=== PATIENT | male | born 1940 | race Caucasian/White ===

== ENCOUNTER 2016-07-21 17:16 | Inpatient (IN) | payer OTHER ==
[~2016-07-21] VITALS: Ht 154.9 cm; Wt 61.2 kg
[2016-07-21] MEDS: NACL 0.9% 1,000 ML IV SCH (01:00)
[~2016-07-21 17:16] MED LIST: ARICEPT10 MG PO; DIOVAN160 M1 PO; FLOMAX0.4 MG PO; JANUVIA25 MG PO; NORVASC5 MG PO
[2016-07-21 18:12] VITALS: BP 151/81
--- NOTE | 2016-07-21 19:32 | NUR ---
Patient ambulated to bed 03.
--- NOTE | 2016-07-21 19:35 | NUR ---
75 Y/O HERE BIB DAUGHTER W/C/O PT BEING CONFUSED AND DISORIENTED X 1 DAY. PER EAMON PT HAS A HX OF HTN, DM, DEMENTIA, BUT HE SEEMS MORE CONFUSED TO THE POINT THAT PT WAS UNABLE TO DRESS HIMSELF. BP 165/73 DENIES ANY CHEST PAIN OR ANY KIND OF PAIN. NO S/S OF DISTRESS NOTED. ER MD NOTIFIED.
--- NOTE | 2016-07-21 19:49 | NUR ---
Dr. Blair evaluating patient at bedside.
--- NOTE | 2016-07-21 20:13 | NUR ---
Patient to CT via [facility].
--- NOTE | 2016-07-21 20:29 | NUR ---
Patient back from CT via [facility].
[2016-07-21] MEDS ORDERED: NACL 0.9% 500 ML IV ONE (21:35)
[2016-07-21] MEDS ORDERED: VANCOMYCIN 1,000 MG in DEXTROSE 5% 250 ML IV ONE (22:05)
[2016-07-21] MEDS ORDERED: PIPERACILLIN/TAZOBACTAM 3.375 GM in DEXTROSE 5% 50 ML IV ONE (22:05)
[2016-07-21] MEDS ORDERED: PIPERACILLIN/TAZOBACTAM 3.375 GM VIAL IV ONE (22:08)
[2016-07-21] MEDS ORDERED: VANCOMYCIN 1,000 MG VIAL ONE (22:09)
--- NOTE | 2016-07-21 22:15 | NUR ---
PT RESTRING IN BED AT 2200 WHEN C/O DIZZINESS. BP RECHECKED, 78/48. BP RECHECKED ON THE OTHER ARM AND READING WAS 79/56. ER MD CALLED AT BEDSIDE. PT WAS PINK, O2 SAT 97% IN RA. PER ER MD TO CONT WITH NA 0.9% IV BOLUS. PT PLACED IN TRENDELENBURT POSITION. BP RECHECKED AT 2207 158/77, O2 99% AND PT DENIED HAVING ANY MORE DIZZINESS. PER ER MD ORDERS TO START ZOSYN AND VANCOMYCIN.
[2016-07-21] MEDS ORDERED: ONDANSETRON 4 MG/2 ML VIAL IVP PRN (22:30)
[2016-07-21] MEDS ORDERED: MORPHINE SULFATE 2 MG/ML SYR IVP PRN (22:30)
[2016-07-21] MEDS ORDERED: ACETAMINOPHEN 325 MG TAB PO PRN (22:30)
[2016-07-21] MEDS ORDERED: HYDROcodone/APAP 7.5/325 MG 1 TAB PO PRN (22:30)
[2016-07-21] MEDS ORDERED: POTASSIUM CHLORIDE 10 MEQ TABER PO SCH (22:50)
[2016-07-21] MEDS ORDERED: diphenhydrAMINE 50 MG/ML VIAL IVP ONE (23:05)
--- NOTE | 2016-07-21 23:28 | NUR ---
Patient will be admitted to care of [facility]. Admited to TELEMETRY. Will go to room 109 A. Belongings list completed. Report to EDENILSON CABALLERO.
[2016-07-21 23:40] VITALS: BP 155/73
--- NOTE | 2016-07-21 23:40 | NUR ---
ADMITTED A 75M FROM ER. CAME BY PATT DUE TO FAILURE TO THRIVE. CONFUSED, UNABLE TO DO ADL , WITH WEAKNESS AND FEVER. AWAKE BUT CONFUSED. ON TELE MONITOR. WITH IVF INFUSING ON THE RT AC #20. ER NURSE SAID TO CONTINUE TO VANCO IV STARTED IN ER. ANOTHER HL ON THE LT HAND #22. BOTH CLEAR AND PATENT. DAUGHTER AT BEDSIDE WHO IS AVAILABLE TO GIVE MEDICAL HISTORY. PLAN OF CARE DISCUSSED WITH DAUGHTER AND VERBALIZED UNDERSTANDING. CALL LIGHT PLACED WITHIN EASY REACH. WILL CONTINUE TO MONITOR.
--- NOTE | 2016-07-21 23:43 | NUR ---
PT TRASFERRED TO TELEMETRY VIA [employer], TIP SCOURER IN BED. ACCOMPANIED BY JIM, RN AND JANIS, EMT. PT STABLE, VSS, NO S/S OF RESP DISTRESS NOTED AT THIS MOMENT.
--- NOTE | 2016-07-22 01:02 | NUR ---
PAGED DR. JEFFERY FOR PT IS VERY AGITATED, HALLUCINATING. DR. MCGHEE PRACTICE PROFESSIONAL. WILL WAIT FOR CALL BACK.
--- NOTE | 2016-07-22 01:05 | NUR ---
PT STILL AGITATED. NOT SURE IF PT IS HAVING ITCHING. HOLD THE VANCO FOR NOW .WILL WAIT FOR MD CALL BACK.
--- NOTE | 2016-07-22 01:09 | NUR ---
DR. GALLAGHER CALLED BACK. MADE AWARE OF PT AGITATION,HALLUCINATING . AND THAT PT CAN'T TAKE THE K DUR PO AT THIS TIME. SHE SAID TO HOLD THE VANCO AND K DUR . WILL MAKE ORDER FOR AGITATION.
[2016-07-22] MEDS ORDERED: LORazepam 2 MG/ML VIAL IVP SCH (01:20)
--- NOTE | 2016-07-22 02:45 | NUR ---
SLEEPING WELL AT THIS TIME. WILL CONTINUE TO MONITOR.
[2016-07-22 04:10] VITALS: BP 161/89
[2016-07-22] MEDS ORDERED: PIPERACILLIN/TAZOBACTAM 3.375 GM VIAL IV ONE (04:28)
[2016-07-22] MEDS: PIPER/TAZO 3.375GM/D5W PREMIX 50 ML IV SCH ×4 (05:42→23:20)
--- NOTE | 2016-07-22 05:42 | NUR ---
ZOSYN IVPB SCHEDULED SECOND DOSE STARTED THIS AM. RUN IN SLOW .WILL MONITOR FOR ANY REACTION.
[2016-07-22] MEDS ORDERED: POTASSIUM CHLORIDE 10 MEQ TABER PO SCH (05:45)
--- NOTE | 2016-07-22 06:00 | NUR ---
PT IS SLEEPING WELL. NO UNTOWARD REACTION NOTED ON ZOSYN YET. WILL CONTINUE TO MONITOR.
--- NOTE | 2016-07-22 06:30 | NUR ---
BLOOD SUGAR WAS CHECKED PER NURSE RESULT 193.
[2016-07-22] MEDS ORDERED: DEXTROSE 50% 50 ML SYR IVP PRN (07:10)
--- NOTE | 2016-07-22 07:35 | NUR ---
DR. JEFFERY AND THE GROUP HERE. MADE AWARE ABOUT NOT SURE IF PT HAS ALLERGY TO ANY VANCO . THE ZOSYN DOSE GIVEN EARLIER ,NO REACTION NOTED. ENDORSED PT IN STABLE CONDITION TO AM NURSE.
--- NOTE | 2016-07-22 07:40 | NUR ---
RECEIVED REPORT FROM NIGHT NURSE EDENILSON CABALLERO. PATIENT APPEARED TO BE DROWSY AND LETHARGIC, ABLE TO OPEN EYES TO NAME CALL AND TOUCHED. AAOX3. ABLE TO VERBALIZED "MUY DEGLADO AND NO DOLOR." TO QUESTIONS. ABLE TO MOVE ALL EXTREMITIES. NO SOB OR SIGN OF RESPIRATORY DISTRESS NOTED AT THIS TIME. INITIAL ASSESSMENT DONE. SKIN INTACT. PATIENT DENIED DISCOMFORT OR PAIN AT THIS TIME. IV 22G TO LEFT HAND INTACT AND INFUSING WELL WITH IV FLUID, PLAN OF CARE AND PAIN MANAGEMENT DISCUSSED, PATIENT OPENED HIS EYES AND WENT BACK TO SLEEP RIGHT AWAY. VSS WITH T99.8. COOLING MEASURE INITIATED. HEAD OF BED ELEVATED. CALL LIGHT WITHIN REACH. WILL CONTINUE TO MONITOR.
[2016-07-22 08:00] VITALS: BP 153/83
[2016-07-22] MEDS: BLOOD GLUCOSE MONITORING 1 DEV DEV FS SCH ×4 (08:16→20:34)
--- NOTE | 2016-07-22 08:22 | NUR ---
PATIENT HAS BEEN SCREENED AND CATEGORIZED HIGH NUTRITION RISK. PATIENT WILL BE SEEN WITHIN 1-2 DAYS OF ADMISSION. 07/22/16-07/23/[address]
[2016-07-22] MEDS: VALSARTAN 80 MG TAB PO SCH (08:28)
[2016-07-22] MEDS: FAMOTIDINE 20 MG TAB PO SCH (08:28)
[2016-07-22] MEDS: SACCHAROMYCES 250 MG CAP PO SCH ×2 (08:28→20:25)
[2016-07-22] MEDS: DOCUSATE SODIUM 100 MG GELCAP PO SCH (08:33)
--- NOTE | 2016-07-22 08:33 | NUR ---
MORNING DUE MEDICATIONS GIVEN, PATIENT TOLERATED WELL. NO SIGN OF DISTRESS NOTED. DENIED ANY PAIN OR DISCOMFORT. PATIENT STILL REMAIN CALM AND DROWSY. CALL LIGHT WITHIN REACH. WILL CONTINUE TO MONITOR. LEAD TECHNICAL ARCHITECT WITH PATIENT FOR ULTRASOUND.
--- NOTE | 2016-07-22 08:47 | NUR ---
TYLENOL PO GIVEN FOR MILD FEVER. PATIENT TOLERATED WELL. WELL CONTINUE TO MONITOR.
[2016-07-22] MEDS ORDERED: amLODIPine 5 MG TAB PO SCH (09:00)
[2016-07-22] MEDS ORDERED: DONEPEZIL 10 MG TAB PO SCH (09:00)
[2016-07-22] MEDS ORDERED: TAMSULOSIN 0.4 MG CAP PO SCH (09:00)
--- NOTE | 2016-07-22 10:47 | NUR ---
PATIENT STILL APPEARED TO BE SLEEPY AND DROWSY. NO SIGN OF DISTRESS NOTED. NO CHANGE IN CONDITION NOTED. HEAD OF BED ELEVATED FOR COMFORT. DAUGHTER AT BEDSIDE. CALL LIGHT WITHIN REACH. WILL CONTINUE TO MONITOR.
[2016-07-22] MEDS ORDERED: LEVOFLOXACIN 500 MG/D5W PREMIX 100 ML IV SCH (11:00)
[2016-07-22] MEDS: LORazepam 2 MG/ML VIAL IVP SCH (11:32)
[2016-07-22 12:00] VITALS: BP 149/87
[2016-07-22] MEDS: INSULIN ASPART SLIDING SCALE 100 UNITS/ML VIAL SUBQ PRN ×2 (12:23→20:35)
--- NOTE | 2016-07-22 15:03 | NUR ---
PATIENT LEFT THE UNIT TO RADIOLOGY FOR ABD/PELVIS WITH CONTRAST. NEW IV 20G INSERTED TO LEFT FOREARM. PATIENT TOLERATED WELL. Addendum: 07/22/16 at 1504 by Manpreet Damon RN NO SIGN OF DISTRESS NOTED.
--- NOTE | 2016-07-22 15:30 | NUR ---
PATIENT BACK TO UNIT WITH NO SIGN OF DISTRESS NOTED. PATIENT STILL APPEARED DROWSY AND LETHARGIC. OPEN EYES TO NAME CALLED AND TOUCH. FAMILY MEMBER AT BEDSIDE. CALL LIGHT WITHIN REACH. WILL CONTINUE TO MONITOR.
[2016-07-22 16:00] VITALS: BP 100/55
[2016-07-22] MEDS: TAMSULOSIN 0.4 MG CAP PO SCH (17:00)
[2016-07-22] MEDS ORDERED: PHENYTOIN 100 MG/4 ML UDC GT SCH (17:15)
--- NOTE | 2016-07-22 18:31 | NUR ---
PATIENT HAD HEMATURIA NOTED AFTER INSERTION OF MCKINLEY CATHETER, WITH 730 ML OUTPUT, NOTIFIED DR. DANIEL, WITH ORDER TO D/C THE MCKINLEY CATHETER AND SHE WILL ORDER BLADDER US. WILL CONTINUE TO MONITOR PATIENT.
[2016-07-22 18:40] VITALS: BP 135/65
--- NOTE | 2016-07-22 18:40 | NUR ---
MCKINLEY REMOVED AND VS RECHECKED T98.1, BP135/65, P69, O2 98% ON ROOM AIR AND RR18. NO SIGN DISTRESS NOTED. WILL CONTINUE TO MONITOR.
[2016-07-22] MEDS: NACL 0.9% 1,000 ML IV SCH (18:55)
--- NOTE | 2016-07-22 19:30 | NUR ---
RECEIVED REPORT FROM AFTAB PYLE AT BEDSIDE. PT IS ALERT AWAKE ORIENTED X1 WITH CONFUSION. NO S/S OF RESPIRATORY DISTRESS OR SOB NOTED. NO C/O PAIN OR ANY DISCOMFORT AT THIS TIME. PLAN OF CARE REVIEWED TO PT AND FAMILY AT BEDSIDE AND VERBALIZED UNDERSTANDING. CALL LIGHT WITHIN REACH. WILL CONTINUE TO MONITOR.
--- NOTE | 2016-07-22 19:30 | NUR ---
ENDORSED PATIENT CURRENT PLAN OF CARE TO NIGHT NURSE EDENILSON CAMPBELL. PATIENT RESTING WELL IN BED WITH NO SIGN OF DISTRESS NOTED.
[2016-07-22 20:00] VITALS: BP 119/77
[2016-07-22] MEDS: RIVASTIGMINE 1.5 MG CAP PO SCH (20:25)
--- NOTE | 2016-07-22 22:15 | NUR ---
DR. BAILEY CAME TO SEE PT AND NEW ORDERS WERE GIVEN (PLS SEE CPOE). NEW ORDERS NOTED AND CARRIED OUT. WILL CONTINUE TO MONITOR.
--- NOTE | 2016-07-22 22:20 | NUR ---
MCKINLEY CATHETER INSERTED ORDERED BY DR. BAILEY AND PT TOLERATED WELL AND HAS A BLOODY URINE. DR. BAILEY MADE AWARE AND SAID IT'S OKAY AND NEW ORDERS WERE GIVEN (PLS SEE CPOE). NEW ORDERS NOTED AND CARRIED OUT.
[2016-07-23] VITALS: BP 111/76
--- NOTE | 2016-07-23 00:20 | NUR ---
PT IS ASLEEP RIGHT NOW BUT EASILY AROUSABLE. NO S/S OF ANY DISCOMFORT AT THIS TIME. ALL NEEDS ARE ATTENDED. CALL LIGHT WITHIN REACH. WILL CONTINUE TO MONITOR.
--- NOTE | 2016-07-23 02:30 | NUR ---
MCKINLEY CATHETER IRRIGATED AND DRAINING WELL. PT TOLERATED WELL DURING IRRIGATION OF MCKINLEY CATHETER. WILL CONTINUE TO MONITOR.
[2016-07-23 04:00] VITALS: BP 108/66
--- NOTE | 2016-07-23 05:00 | NUR ---
AM CARE RENDERED. BED LINEN CHANGED. INSTRUCTED PT TO REPOSITION. KEPT CLEAN AND DRY. CALL LIGHT WITHIN REACH. WILL CONTINUE TO MONITOR.
[2016-07-23] MEDS: PIPER/TAZO 3.375GM/D5W PREMIX 50 ML IV SCH ×4 (05:32→23:22)
[2016-07-23] MEDS: BLOOD GLUCOSE MONITORING 1 DEV DEV FS SCH ×4 (06:35→21:02)
--- NOTE | 2016-07-23 07:18 | NUR ---
PT HAS NO S/S OF ANY DISCOMFORT. PLAN OF CARE ENDORSED TO JEMIMA VIERA RN AT BEDSIDE FOR CONTINUITY OF CARE.
--- NOTE | 2016-07-23 07:18 | NUR ---
ASSUMED CONTINUITY OF CARE. NO SIGNS AND SYMPTOMS OF ACUTE DISTRESS NOTED. INITIAL ASSESSMENT DONE. RE-ORIENTED TO EVENTS AND SURROUNDINGS. PT. DAUGHTER ON BEDSIDE. EXPLAINED DIAGNOSIS, PLAN OF CARE, PAIN MANAGEMENT TEACHING, USE OF CALL LIGHT/BED/TV/BATHROOM. VERBALIZED UNDERSTANDING. FALL PRECAUTION APPLIED. CALL LIGHT WITHIN REACH.
--- NOTE | 2016-07-23 07:27 | NUR ---
DR. JEFFERY AND GROUP OF MD CAME AND SEEN PT.. MADE AWARE OF HEMATURIA ON MCKINLEY CATHETER URINE OUTPUT.
[2016-07-23 08:00] VITALS: BP 104/61
--- NOTE | 2016-07-23 08:00 | NUR ---
Patient's Plan of Care was discussed and reviewed with FOOD SERVICE MANAGER: JEMIMA SALDANA
[2016-07-23] MEDS: TAMSULOSIN 0.4 MG CAP PO SCH (08:27)
[2016-07-23] MEDS: MEMANTINE 10 MG TAB PO SCH (08:28)
[2016-07-23] MEDS: SACCHAROMYCES 250 MG CAP PO SCH ×2 (08:28→21:03)
[2016-07-23] MEDS: RIVASTIGMINE 1.5 MG CAP PO SCH ×2 (08:29→21:03)
[2016-07-23] MEDS: DOCUSATE SODIUM 100 MG GELCAP PO SCH (08:30)
[2016-07-23] MEDS: FAMOTIDINE 20 MG TAB PO SCH (08:30)
[2016-07-23] MEDS: VALSARTAN 80 MG TAB PO SCH (08:31)
[2016-07-23] MEDS: amLODIPine 5 MG TAB PO SCH (08:31)
[2016-07-23] MEDS ORDERED: JANUVIA 25 MG PO SCH (09:00)
[2016-07-23] MEDS: LORazepam 2 MG/ML VIAL IVP SCH (11:30)
[2016-07-23 12:00] VITALS: BP 112/65
[2016-07-23] MEDS ORDERED: POTASSIUM CHLORIDE 10 MEQ TABER PO SCH (14:30)
[2016-07-23] MEDS ORDERED: FINASTERIDE 5 MG TAB PO SCH (14:30)
[2016-07-23] MEDS: NACL 0.9% 1,000 ML IV SCH ×2 (14:43→21:18)
--- NOTE | 2016-07-23 14:45 | NUR ---
PT CAME FOR PT. EVAL AND TREATMENT. TOLERATED WELL. PT. CT TARIQ ON BEDSIDE. PT. NO C/O PAIN.
--- NOTE | 2016-07-23 14:59 | NUR ---
07/23/16 RD INITIAL ASSESSMENT COMPLETED PLEASE REFER TO NUTRITION ASSESSMENT UNDER CARE ACTIVITY FOR ESTIMATED NUTRITIONAL NEEDS. RD RECOMMENDATIONS: 1. CONTINUE NPO MEDICALLY APPROPRIATE PER MD. 2. IF/WHEN PT IS MEDICALLY STABLE TO BEING NUTRITION, CONSIDER CCHO 60 GM CARDIAC DIET D/T PT PMH OF DM AND HTN. --NOTE PT WITH ELEVATED GLUCOSE AND HBA1C LEVELS. 3. RD WILL F/U 3-5 DAYS; MODERATE RISK. TALYA PATRICK, RD
[2016-07-23 16:00] VITALS: BP 121/64
--- NOTE | 2016-07-23 19:13 | NUR ---
BEDSIDE REPORT GIVEN TO DAVID GARCIA -EDENILSON. IVF INFUSING WELL. PT. SON -OSMEL ON BEDSIDE. PT. IN STABLE CONDITION.
--- NOTE | 2016-07-23 19:25 | NUR ---
RECEIVED REPORT FROM EDENILSON ONOFRE AT BEDSIDE. PT AAOX1. PT HAS HISTORY OF DEMENTIA AND ALZHEIMER. PT HAS IV TO LEFT FOREARM G 20 INFUSING FLUIDS WELL AND LEFT HAND G 22 HL. PT'S SKIN IS INTACT. PT HAS A MCKINLEY CATHETER IN PLACE. PT'S VS ARE WITHIN NORMAL RANGE. NO SIGNS OF DISTRESS OR DISCOMFORT NOTED. SON AT BEDSIDE. PT HAS SCDS ON. PT AMBULATES WITH ASSIST. SAFETY MEASURES IN PLACE, BED ALARM ON. WILL CONTINUE TO MONITOR PT.
[2016-07-23 20:00] VITALS: BP 128/78
[2016-07-23] MEDS: INSULIN ASPART SLIDING SCALE 100 UNITS/ML VIAL SUBQ PRN (21:01)
--- NOTE | 2016-07-23 21:07 | NUR ---
PT TOLERATED 2100 MEDS WELL. MCKINLEY CATHETER IRRIGATED ORDERED. DAUGHTER AT BEDSIDE. WILL CONTINUE TO MONITOR PT.
--- NOTE | 2016-07-23 23:29 | NUR ---
000 ZOSYN GIVEN. PT STABLE IN BED. WILL CONTINUE TO MONITOR PT. Addendum: 07/24/16 at 0225 by Yohana Teran RN MEANT TO WRITE 0000.
[2016-07-24] VITALS: BP 135/83
--- NOTE | 2016-07-24 02:25 | NUR ---
PT COMPLETELY AWAKE. PT REMOVED IV FROM LEFT HAND. DAUGHTER AT BEDSIDE. WILL CONTINUE TO MONITOR PT.
[2016-07-24 04:00] VITALS: BP 126/65
--- NOTE | 2016-07-24 04:04 | NUR ---
PT AWAKE, VS STABLE. MCKINLEY CATHETER IRRIGATED AND EMPTIED. DAUGHTER AT BEDSIDE. SAFETY MEASURES IN PLACE. BED ALARM ON.
[2016-07-24] MEDS: PIPER/TAZO 3.375GM/D5W PREMIX 50 ML IV SCH ×2 (05:21→11:29)
--- NOTE | 2016-07-24 05:25 | NUR ---
WAD PRINTING MACHINE OPERATOR AT BEDSIDE TO DRAW MORNING LABS. IV INFUSING FLUIDS WELL. DAUGHTER AT BEDSIDE. CALL LIGHT WITHIN REACH.
[2016-07-24] MEDS: BLOOD GLUCOSE MONITORING 1 DEV DEV FS SCH ×2 (06:30→11:32)
--- NOTE | 2016-07-24 07:21 | NUR ---
ENDORSED PT IN STABLE CONDITION TO RN KURT FOR CONTINUITY OF CARE.
--- NOTE | 2016-07-24 07:22 | NUR ---
RECEIVED REPORT FROM EDENILSON HERNANDEZ. PT IS A/OX1, AMBULATORY WITH ASSIST. DAUGHTER AT BEDSIDE. LFA 20G IV INTACT AND PATENT. MCKINLEY CATHETER DRAINING TO GRAVITY, IRRIGATED 50ML. SCDS PRESENT. NO S/S OF ACUTE CARDIAC/RESPIRATORY DISTRESS OR DISCOMFORT. SAFETY MEASURES IN PLACE. FALL RISK PRECAUTIONS IN PLACE. BED ALARM ON AND CALL LIGHT WITHIN REACH. WILL CONTINUE PLAN OF CARE AND CONTINUE TO MONITOR.
[2016-07-24 08:00] VITALS: BP 135/66
[2016-07-24] MEDS ORDERED: TAMSULOSIN 0.4 MG CAP PO SCH (08:30)
[2016-07-24] MEDS: SACCHAROMYCES 250 MG CAP PO SCH (09:00)
[2016-07-24] MEDS: VALSARTAN 80 MG TAB PO SCH (09:00)
[2016-07-24] MEDS ORDERED: FINASTERIDE 5 MG TAB PO SCH (09:00)
[2016-07-24] MEDS: FAMOTIDINE 20 MG TAB PO SCH (09:01)
[2016-07-24] MEDS: DOCUSATE SODIUM 100 MG GELCAP PO SCH (09:01)
[2016-07-24] MEDS: amLODIPine 5 MG TAB PO SCH (09:01)
[2016-07-24] MEDS: MEMANTINE 10 MG TAB PO SCH (09:01)
[2016-07-24] MEDS: RIVASTIGMINE 1.5 MG CAP PO SCH (09:02)
--- NOTE | 2016-07-24 10:13 | NUR ---
PT AWAKE, AND RESTING. NO S/S OF ACUTE DISTRESS OR DISCOMFORT. CALL LIGHT WITHIN REACH, WILL CONTINUE TO MONITOR.
[2016-07-24 12:00] VITALS: BP 143/70
--- NOTE | 2016-07-24 12:17 | NUR ---
PT IS AWAKE. NO S/S OF ACUTE DISTRESS OR DISCOMFORT. CALL LIGHT WITHIN REACH. SON AT BEDSIDE. WILL CONTINUE TO MONITOR.
[2016-07-24] MEDS ORDERED: AUGMENTIN 500 M1 TAB PO (12:43)
[2016-07-24] MEDS ORDERED: FLORASTOR 33 MG1 CAP PO (12:43)
[2016-07-24] MEDS ORDERED: APAP/HYDROCODON1 T30 PO (12:43)
[2016-07-24] MEDS ORDERED: FINASTERIDE5 M1 PO (12:43)
--- NOTE | 2016-07-24 12:59 | NUR ---
SS NOTE: PER LIZA FROM [facility] ([phone]), THEY WILL SEND A NURSE TO SEE PT AT HOME ON WEDNESDAY.
[2016-07-24] MEDS ORDERED: ATIVAN0.5 MG PO (14:38)
--- NOTE | 2016-07-24 14:43 | NUR ---
PATIENT'S DAUGHTER REFUSED TO HAVE HOME HEALTH , STATED THEY LIVE WITH SOMEONE'S HOUSE AND THERE WILL BE A PROBLEM TO INVITE PEOPLE. EXPLAIN THE BENEFIT OF THE NURSE FOR THE CARE OF MCKINLEY CATH , PHYSICAL THERAPY STILL SHE DOESN'T SEE THE BENEFIT OF IT. SHE IS ABLE TO TAKE CARE OF HIM.
--- NOTE | 2016-07-24 14:45 | NUR ---
DISCHARGE INSTRUCTIONS PROVIDED TO PT AND SON, VERBALIZED UNDERSTANDING. SON SIGNED DISCHARGE PAPERWORK DUE TO PT BEING CONFUSED, PROVIDED A COPY. SON, DAUGHTER, AND PT AWARE OF HOME HEALTH SERVICES, THEY DECLINED HOME HEALTH. ARM BANDS REMOVED. IV REMOVED AND INTACT. MCKINLEY CATHETER EMPTIED AND WITH PT FOR F/U APPT TOMORROW. PT HAS NO S/S OF ACUTE DISTRESS OR DISCOMFORT. PT IN STABLE CONDITION. WHEELCHAIRED PT TO FRONT LOBBY TO BE PICKED UP BY DAUGHTER.
== END 2016-07-24 14:45 | disposition home health service (06) | DRG 56 ==
LOC: MED 17:16 → MTU 22:32
PROVIDERS: ADMIT Family Medicine; ATTEND Family Medicine
DX: G30.9 Alzheimer's disease, unspecified (principal); G93.41 Metabolic encephalopathy; N17.0 Acute kidney failure with tubular necrosis; N13.30 Unspecified hydronephrosis; F02.81 Dementia in other diseases classified elsewhere, unspecified severity, with behavioral disturbance; N13.8 Other obstructive and reflux uropathy; E87.0 Hyperosmolality and hypernatremia; D68.69 Other thrombophilia; J32.0 Chronic maxillary sinusitis; E11.65 Type 2 diabetes mellitus with hyperglycemia; I10 Essential (primary) hypertension; N40.1 Benign prostatic hyperplasia with lower urinary tract symptoms; N28.1 Cyst of kidney, acquired; E11.51 Type 2 diabetes mellitus with diabetic peripheral angiopathy without gangrene; D64.9 Anemia, unspecified; D69.6 Thrombocytopenia, unspecified; E87.6 Hypokalemia; E87.8 Other disorders of electrolyte and fluid balance, not elsewhere classified; E83.51 Hypocalcemia; R62.7 Adult failure to thrive; Z87.442 Personal history of urinary calculi

== ENCOUNTER 2017-10-29 02:30 | Emergency (ER) | payer OTHER ==
[~2017-10-29] VITALS: Ht 154.9 cm; Wt 51.7 kg
[~2017-10-29 02:30] MED LIST changes: +ACET-9529 PO; +AMLO5TAB PO; +AMOX-999 PO; -ARICEPT10 MG PO; +ATI.5 PO; -DIOVAN160 M1 PO; +DONE10TA10 PO; +FINA5TAB5 PO; -FLOMAX0.4 MG PO; -JANUVIA25 MG PO; -NORVASC5 MG PO; +SACC250C1 PO; +SITA25TA3 PO; +TAMS0.4C96 PO; +VALS160T2 PO
[2017-10-29 02:36] VITALS: BP 117/96
[2017-10-29 03:23] VITALS: BP 141/67
== END 2017-10-29 03:23 | disposition home or self-care (01) ==
LOC: MED 02:30
DX: S01.01XA Laceration without foreign body of scalp, initial encounter (principal); E11.9 Type 2 diabetes mellitus without complications; F03.90 Unspecified dementia, unspecified severity, without behavioral disturbance, psychotic disturbance, mood disturbance, and anxiety; I10 Essential (primary) hypertension; Z79.899 Other long term (current) drug therapy; Z88.1 Allergy status to other antibiotic agents; X58.XXXA Exposure to other specified factors, initial encounter; Y93.89 Activity, other specified; Y92.89 Other specified places as the place of occurrence of the external cause; Y99.8 Other external cause status
CPT/HCPCS: 12001; 70450; 99284

== ENCOUNTER 2018-01-30 17:25 | Emergency (ER) | payer OTHER ==
[~2018-01-30] VITALS: Ht 154.9 cm; Wt 52.2 kg
[2018-01-30 17:34] VITALS: BP 158/87
--- NOTE | 2018-01-30 17:43 | NUR ---
pt ambulates w/ slow, steady gait to the lobby at this time to wait fornext available bed.
--- NOTE | 2018-01-30 18:56 | NUR ---
77 yo m bib family for c/o left arm pain related to having a broken elbow on 01/19/18. pt was dx at [facility] and told the elbow was fractured. The orthopedist reported that they could not perform the surgery as pt has alzheimers and was agressive during MRI, stated pt needs to be seen at [facility] for the surgery. ambulatory w/ slow, steady gait. pt taking tylenol #3 to control the pain. also having difficulty urinating/urinary retention. hx DM, alzheimer's rx tylenol #3, denepacil, seraquil, namenda, actos
--- NOTE | 2018-01-30 19:13 | NUR ---
Luz Elena cruz in [facility] - 01/30/18 at 1916 by [facility] Pt report given to RAY PYLE. Transfer of care at this time.
--- NOTE | 2018-01-30 19:15 | NUR ---
ASSUMED CARE OF PT AT THIS TIME. PT AWAITS MD DISPOSITION. YRN .TASNEEM. SPOUSE AT BEDSIDE. WILL CONTINUE TO MONITOR.
--- NOTE | 2018-01-30 19:16 | NUR ---
Pt report given to JORDON PYLE. Transfer of care at this time.
--- NOTE | 2018-01-30 20:17 | NUR ---
Dr. Mcghee evaluating patient at bedside.
[2018-01-30] MEDS ORDERED: MORPHINE SULFATE 4 MG/ML SYR IM ONE (20:25)
[2018-01-30 20:40] VITALS: BP 144/84
--- NOTE | 2018-01-30 20:40 | NUR ---
Patient discharged with v/s stable. Written and verbal after care instructions given and explained. Patient's [facility] verbalized understanding of instructions. Ambulatory with steady gait. All questions addressed prior to discharge. ID band removed. Patient's daughter advised to have pt follow up with PMD. Rx of MOTRIN, COLACE, AND NORCO given. Patient's daughter educated on possible medication reactions and side effects. Opportunity to ask questions provided and answered.
== END 2018-01-30 20:40 | disposition home or self-care (01) ==
LOC: MED 17:25
DX: S42.402A Unspecified fracture of lower end of left humerus, initial encounter for closed fracture (principal); K59.00 Constipation, unspecified; E11.9 Type 2 diabetes mellitus without complications; I10 Essential (primary) hypertension; Z88.8 Allergy status to other drugs, medicaments and biological substances; Z79.899 Other long term (current) drug therapy; X58.XXXA Exposure to other specified factors, initial encounter; Y93.89 Activity, other specified; Y92.89 Other specified places as the place of occurrence of the external cause; Y99.8 Other external cause status
CPT/HCPCS: 96372; 99283; J2270

== ENCOUNTER 2018-09-21 10:17 | Emergency (ER) | payer OTHER ==
[~2018-09-21] VITALS: Ht 154.9 cm; Wt 46.3 kg
[2018-09-21 10:19] VITALS: BP 113/73
--- NOTE | 2018-09-21 10:25 | NUR ---
Note undone in EDM - 09/21/18 at 1123 by [facility] BIB DAUGHTER AND GRANDSON. PT'S DAUGHTER REPORTS THAT PT HAS BLOOD IN URINE FIRST NOTICED TODAY. PT DENIES PAIN AT THIS TIME. PT DENIES N/V/D OR FEVER. PER PT'S DAUGHTER, SURGICAL REMOVAL OF PT'S PROSTATE DONE ON 09/2016. HOB UP. BED SIDE RAILS UP X1. ON LOW BED POSITION, LOCKED. MD DORADO MADE AWARE OF PT STATUS.
--- NOTE | 2018-09-21 10:25 | NUR ---
BIB DAUGHTER AND SON. PT'S DAUGHTER REPORTS THAT PT HAS BLOOD IN URINE FIRST NOTICED TODAY. PT DENIES PAIN AT THIS TIME. PT DENIES N/V/D OR FEVER. PER PT'S DAUGHTER, SURGICAL REMOVAL OF PT'S PROSTATE DONE ON 09/2016. HOB UP. BED SIDE RAILS UP X1. ON LOW BED POSITION, LOCKED. ER MADE AWARE OF PT STATUS.
--- NOTE | 2018-09-21 10:50 | NUR ---
PT TAKEN TO THE BATHROOM BY DAUGHTER AND GRANDSON TO OBTAIN URINE.
--- NOTE | 2018-09-21 11:00 | NUR ---
PT VOIDED. URINE SPECIMEN OBTAINED. SENT TO LAB.
--- NOTE | 2018-09-21 11:03 | NUR ---
DR CASTELAN AT BEDSIDE FOR PT EVALUATION.
[2018-09-21 11:20] VITALS: BP 143/63
--- NOTE | 2018-09-21 11:20 | NUR ---
Patient discharged with v/s stable. Written and verbal after care instructions given and explained. Patient verbalized understanding. Ambulatory with steady gait. All questions addressed prior to discharge. Advised to follow up with PMD.
== END 2018-09-21 11:20 | disposition home or self-care (01) ==
LOC: MED 10:17
DX: R31.9 Hematuria, unspecified (principal); E11.9 Type 2 diabetes mellitus without complications; I10 Essential (primary) hypertension; G56.00 Carpal tunnel syndrome, unspecified upper limb; Z79.2 Long term (current) use of antibiotics; Z79.899 Other long term (current) drug therapy; Z88.1 Allergy status to other antibiotic agents
CPT/HCPCS: 81002; 99283; C1758

== ENCOUNTER 2019-06-03 09:17 | Inpatient (IN) | payer OTHER ==
[~2019-06-03] VITALS: Ht 147.3 cm; Wt 49.0 kg
--- NOTE | 2019-06-03 09:17 | NUR ---
Patient BIBA ALS, transferred to bed 11. RN evaluating patient at bedside.
[2019-06-03 09:20] VITALS: BP 164/75
--- NOTE | 2019-06-03 09:29 | NUR ---
BIBA FROM HOME W C/O ALOC REPORTED BY THE FAMILY STARTING THIS MORNING. FSBS 196 IN THE FIELD, 176 HERE. DAUGHTER REPORTS PT WAS "SHAKING FOR 15-30 SEC" WITH "EYES WIDE OPEN". NO LOSS OF CONSCIOUSNESS, ORAL TRAUMA, INCONTINENCE. SHE CALLED 911, PT NORMALLY COMBATIVE AND CURSING WITH MANY STRANGERS PRESENT BUT WAS NOT COMBATITIVE WITH EMS PRESENT WHICH IS NOT NORMAL FOR PATIENT. NO CHANGE TO BASELINE GCS. HX: HYPOTENSION, DEMENTIA, ANEMIA, TIA, DM RX: UNK
--- NOTE | 2019-06-03 09:32 | NUR ---
PT AGITATED AND COMBATITIVE WHILE TAKING BP/PLACING ON BEDSIDE MONITOR.
--- NOTE | 2019-06-03 09:35 | NUR ---
Dr. Wagner is evaluating the patient at bedside.
[2019-06-03] MEDS ORDERED: diphenhydrAMINE 50 MG/ML VIAL IVP ONE (09:45)
[2019-06-03] MEDS ORDERED: LORazepam 2 MG/ML VIAL IVP ONE (09:45)
--- NOTE | 2019-06-03 09:47 | NUR ---
EMT AT BEDSIDE FOR APPLICATION OF VELCRO RESTRAINTS TO ALL EXTREMITIES. Addendum: 06/03/19 at 1002 by JOSELUIS EMT AT BEDSIDE ASSISTING WITH APPLICATION OF VELCRO RESTRAINTS TO ALL EXTREMITIES.
[2019-06-03 10:06] LABS: BASOPHILS % (AUTO) 0.3 % (0.0-2.0); EOSINOPHILS # (AUTO) 0.2 K/uL (0-0.4); HEMATOCRIT 33.5 % (36-52); HEMOGLOBIN 11.4 g/dL (12.0-18.0); LYMPHOCYTES % (AUTO) 17.2 % (20.5-51.1); MEAN CORPUSCULAR HEMOGLOBIN 32 pg (27-31); MEAN CORPUSCULAR HGB CONC 34 g/dL (33-37); MEAN CORPUSCULAR VOLUME 95.5 fL (80-94); MONOCYTES # (AUTO) 0.2 K/uL (0.8-1.0); MONOCYTES % (AUTO) 3.3 % (1.7-9.3); NEUTROPHILS # (AUTO) 4.3 K/uL (1.8-7.7); NEUTROPHILS % (AUTO) 76.2 % (42.2-75.2); PLATELET COUNT (AUTO) 122 K/uL (140-450); RED BLOOD CELL COUNT(AUTO) 3.51 MIL/uL (4.20-6.10); RED CELL DISTRIBUTION WIDTH 13.4 % (11.6-13.7)
[2019-06-03] MEDS ORDERED: PIOG15TA84 PO (10:15)
[2019-06-03] MEDS ORDERED: QUET100T PO (10:15)
[2019-06-03] MEDS ORDERED: FERR-252 PO (10:16)
--- NOTE | 2019-06-03 10:18 | NUR ---
DR. ARTHUR AT BEDSIDE REEXAMINING PT
[2019-06-03 10:19] LABS: ANION GAP 12.8 (8-16); CARBON DIOXIDE 26.9 mmol/L (21-32); CHLORIDE 109 mmol/L (98-107); CREATININE 0.7 mg/dL (0.7-1.3); GLUCOSE 188 mg/dL (74-106); POTASSIUM 3.7 mmol/L (3.5-5.1); SODIUM SERUM 145 mmol/L (136-145); UREA NITROGEN, BLOOD 15 mg/dL (7-18)
--- NOTE | 2019-06-03 10:19 | NUR ---
CHANGED TO SOFT RESTRAINTS TO CASSIE BUE PER DR. ARTHUR ORDERS.
--- NOTE | 2019-06-03 10:23 | NUR ---
Inserted # 16 FR Paniagua catheter utilizing sterile technique. Immediate return of 100 ml YELLOW urine noted. Bedside drainage bag placed below level of bladder. Urine sample collected and sent to lab. Pt tolerated procedure WELL.
[2019-06-03 10:25] LABS: PROTHROMBIN TIME 10.2 secs (10.8-13.4)
[2019-06-03 10:26] LABS: ALBUMIN 3.3 g/dL (3.4-5.0); ASPARTATE AMINOTRANSFERASE 26 U/L (15-37); TOTAL BILIRUBIN 0.3 mg/dL (0.0-1.0); WHITE BLOOD COUNT (AUTO) 5.6 K/uL (4.8-10.8)
[2019-06-03 10:35] LABS: ACETONE, SERUM NEGATIVE (NEGATIVE)
--- NOTE | 2019-06-03 10:47 | NUR ---
PT SLEEPING IN BED, CALM, NOT AGITATED, EYES OPENING BREIEFLY TO VERBAL STIMULI. RELEASED FROM RESTRAINTS, DAUGHTER AT BEDSIDE.
[2019-06-03 10:48] LABS: BILIRUBIN,URINE NEGATIVE (NEGATIVE); BLOOD, URINE 2+ (NEGATIVE); COLOR,URINE YELLOW (YELLOW); LEUKOCYTE ESTERASE ,URINE NEGATIVE (NEGATIVE); NITRITE, URINE NEGATIVE (NEGATIVE); UGLUCOSE NEGATIVE (NEGATIVE)
[2019-06-03 10:52] LABS: APPEARANCE,URINE SLIGHTLY HAZY (CLEAR)
[2019-06-03 10:53] LABS: RBC,URINE 11-20 (MOD) /HPF (0-5); WBC,URINE 0-5 /HPF (0-5)
[2019-06-03 10:54] LABS: CALCIUM OXALATE CRYSTALS,UR 0-10 /HPF (None Seen)
--- NOTE | 2019-06-03 10:57 | NUR ---
XRAY AT BEDSIDE. PT SLEEPING IN BED, RESPIRATIONS EVEN AND UNLABORED, ON BEDSIDE MONITOR, DAUGHTER AT BEDSIDE.
--- NOTE | 2019-06-03 10:57 | NUR ---
NOTIFIED RAD THAT PT READY FOR CT SCAN
--- NOTE | 2019-06-03 11:08 | NUR ---
DARRION PETERSEN AT BEDSIDE TO TAKE PT TO CT SCAN VIA PATT
[2019-06-03 11:11] LABS: BARBITURATE, URINE NEG. ng/ml (NEG <=200); BENZODIAZEPINE, URINE NEG. ng/mL (NEG <=200); CANNABINOID, URINE NEG. ng/mL (NEG <=50); COCAINE, URINE NEG. ng/mL (NEG <=300); OPIATE, URINE NEG. ng/mL (NEG <=2000); PHENCYCLIDINE SCREEN,URINE NEG. ng/mL (NEG <=25)
--- NOTE | 2019-06-03 11:26 | NUR ---
PT BACK FROM CT SCAN VIA GURNEY Addendum: 06/03/19 at 1134 by JOSELUIS PT SLEEPING, RESPIRATIONS EVEN AND UNLABORED, OPENS EYES BRIEFLY TO VERBAL STIMULI. PT CALM, NOT COMBATIVE. LEFT OFF SOFT RESTRAINTS AT THIS TIME, WILL CONTINUE TO CLOSELY MONITOR.
--- NOTE | 2019-06-03 11:37 | NUR ---
FAMILY MEMBER AT BEDSIDE.
--- NOTE | 2019-06-03 12:16 | NUR ---
PT RESTING IN BED, REMAINS OFF RESTRAINTS. CALM, NO ATTEMPTS SEEN TO PULL AT IV OR MCKINLEY CATH.
[2019-06-03] MEDS ORDERED: ONDANSETRON 4 MG/2 ML VIAL IM/IVP PRN (12:20)
[2019-06-03] MEDS ORDERED: LORazepam 2 MG/ML VIAL IM/IVP PRN (12:20)
[2019-06-03] MEDS ORDERED: ACETAMINOPHEN 325 MG TAB PO PRN (12:20)
[2019-06-03] MEDS ORDERED: HYDROcodone/APAP 5/325 MG 1 TAB TAB PO PRN (12:20)
[2019-06-03] MEDS ORDERED: MORPHINE SULFATE 2 MG/ML SYR IVP PRN (12:20)
[2019-06-03] MEDS ORDERED: DOCUSATE SODIUM 100 MG GELCAP PO PRN (12:20)
--- NOTE | 2019-06-03 13:05 | NUR ---
Patient will be admitted to care of DR FERNANDEZ. Admited to TELE. Will go to room 124B. Belongings list completed. Report to ALISSA PYLE.
[2019-06-03 13:13] LABS: FREE T4 (FREE THYROXINE) 0.81 ng/dL (0.76-1.46); THYROID STIMULATING HORMONE 2.89 uIU/mL (0.34-3.74)
[2019-06-03 13:30] VITALS: BP 148/64
--- NOTE | 2019-06-03 13:30 | NUR ---
Received report from ED nurse, Ekta. Pt had a 20 gauge left forearm IV and Paniagua catheter was in place. Pt is responsive to tactile and auditory stimulation. Pt's daughter, Yohana was at bedside. Bed is at lowest position and call light within reach.
[2019-06-03 14:07] LABS: PHOSPHORUS 3.5 mg/dL (2.5-4.9)
[2019-06-03] MEDS: NACL 0.9% 1,000 ML IV SCH (15:00)
[2019-06-03] MEDS ORDERED: DEXTROSE 50% 50 ML SYR IVP PRN (15:55)
[2019-06-03] MEDS ORDERED: INSULIN LISPRO SLIDING SCALE 100 UNITS/ML VIAL SUBQ PRN (15:55)
[2019-06-03] MEDS ORDERED: GLUCAGON 1 MG VIAL IVP PRN (15:55)
[2019-06-03 16:00] VITALS: BP 137/77
[2019-06-03 16:05] VITALS: BP 129/81
[2019-06-03] MEDS ORDERED: MEDICATION REC. PHARMACY CONS. 1 EA MISC MC PRN (16:10)
[2019-06-03] MEDS ORDERED: HALOPERIDOL 1 MG TAB PO PRN (16:10)
[2019-06-03] MEDS: BLOOD GLUCOSE MONITORING 1 DEV DEV FS SCH ×2 (17:13→21:32)
[2019-06-03] MEDS ORDERED: CRUSHER, PILL MC ONE (17:18)
[2019-06-03] MEDS: QUEtiapine FUMARATE 100 MG TAB PO SCH (17:24)
[2019-06-03] MEDS ORDERED: PNEUMOCOCCAL VACCINE 23 MCG/0.5 ML VIAL IMVAC SCH (17:50)
[2019-06-03] MEDS ORDERED: INFLUENZA VACCINE QUAD 0.5 ML SYR IMVAC PRN (17:50)
--- NOTE | 2019-06-03 19:10 | NUR ---
RECEIVED REPORT FROM ALISSA RN DAYSHIFT NURSE AT BEDSIDE FOR CONTINUITY OF CARE, PT IN STABLE CONDITION.
[2019-06-03 20:00] VITALS: BP 123/68
--- NOTE | 2019-06-03 20:00 | NUR ---
PT IN BED RESTING WITH EYES CLOSED BUT AROUSABLE TO LIGHT TOUCH. PT HAS NO S/S OF PAIN OR DISTRESS , BUT GOT AGGRESSIVE AND TRIED TO SWING AT STAFF, WHILE BEING TURNED AND CHANGED. IV SITE INTACT AND RUNNING NS AT 80MLS/HR. MCKINLEY CATHETER INTACT AND DRAINING YELLOW URINE. V/S FOLLOWS: T 97.5 P 60 R 20 B/P 123/68 02 97% ON ROOM AIR. ALL FALLS PRECAUTIONS IN PLACE.
[2019-06-03] MEDS ORDERED: ZOLPIDEM 5 MG TAB PO PRN (21:00)
--- NOTE | 2019-06-03 21:00 | NUR ---
FINGERSTICK IS 108, NO HUMALOG COVERAGE NEEDED.
--- NOTE | 2019-06-04 00:15 | NUR ---
PT IN BED ASLEEP NO S/S OF PAIN OR DISTRESS NOTED. MCKINLEY CATHETER INTACT AND CONTINUES TO DRAIN YELLOW URINE, PT WAS TURNED AND REPOSITIONED IN BED, V/S FOLLOWS: T 97.1 P 61 R 18 B/P 148/56 02 97% ON ROOM AIR. ALL FALLS PRECAUTIONS IN PLACE.
[2019-06-04 00:28] VITALS: BP 148/56
[2019-06-04 04:00] VITALS: BP 129/79
--- NOTE | 2019-06-04 04:30 | NUR ---
PT IN BED NO S/S OF PAIN OR DISTRESS NOTED PT WAS TURNED AND REPOSITIONED IN BED, V/S FOLLOWS: T 97.0 P 64 R 18 B/P 129/79 02 96% ON ROOM AIR. ALL FALLS PRECAUTIONS IN PLACE.
[2019-06-04] MEDS: NACL 0.9% 1,000 ML IV SCH ×2 (04:42→13:07)
--- NOTE | 2019-06-04 06:00 | NUR ---
FINGERSTICK IS 119, NO HUMALOG COVERAGE NEEDED.
--- NOTE | 2019-06-04 07:27 | NUR ---
Received report from PM nurse, Elen. Pt was calm, daughter at bedside, bed at lowest position, call light within reach. IV running NS at 80 ml/hr, snyder catheter free flowing off the ground, bed is padded on bilateral side rails.
[2019-06-04] MEDS: BLOOD GLUCOSE MONITORING 1 DEV DEV FS SCH ×4 (07:38→20:55)
[2019-06-04 08:00] VITALS: BP 155/73
--- NOTE | 2019-06-04 09:25 | NUR ---
Pt pulled out Paniagua catheter. Scant amount of blood found on the tip of the catheter, but no blood in urine. Notified Dr Teague, and states no need to insert another Paniagua. Cleaned pt and applied absorbent pads. Pt was uncooperative, but is now resting.
[2019-06-04] MEDS: QUEtiapine FUMARATE 100 MG TAB PO SCH ×3 (09:29→18:00)
[2019-06-04 09:56] LABS: BASOPHILS % (AUTO) 0.4 % (0.0-2.0); EOSINOPHILS # (AUTO) 0.1 K/uL (0-0.4); EOSINOPHILS % (AUTO) 1.2 % (0.0-4.0); HEMATOCRIT 31.6 % (36-52); HEMOGLOBIN 10.8 g/dL (12.0-18.0); LYMPHOCYTES # (AUTO) 0.8 K/uL (2.0-11.5); LYMPHOCYTES % (AUTO) 10.1 % (20.5-51.1); MEAN CORPUSCULAR HEMOGLOBIN 32 pg (27-31); MEAN CORPUSCULAR HGB CONC 34 g/dL (33-37); MEAN CORPUSCULAR VOLUME 93.5 fL (80-94); MONOCYTES # (AUTO) 0.4 K/uL (0.8-1.0); MONOCYTES % (AUTO) 5.6 % (1.7-9.3); NEUTROPHILS # (AUTO) 6.4 K/uL (1.8-7.7); NEUTROPHILS % (AUTO) 82.7 % (42.2-75.2); PLATELET COUNT (AUTO) 128 K/uL (140-450); RED BLOOD CELL COUNT(AUTO) 3.38 MIL/uL (4.20-6.10); RED CELL DISTRIBUTION WIDTH 13.2 % (11.6-13.7); WHITE BLOOD COUNT (AUTO) 7.7 K/uL (4.8-10.8)
[2019-06-04 10:10] LABS: MAGNESIUM 1.9 mg/dL (1.8-2.4); PHOSPHORUS 3.4 mg/dL (2.5-4.9)
[2019-06-04 10:12] LABS: ANION GAP 10.4 (8-16); CARBON DIOXIDE 27.8 mmol/L (21-32); CHLORIDE 107 mmol/L (98-107); CREATININE 0.5 mg/dL (0.7-1.3); GLUCOSE 143 mg/dL (74-106); POTASSIUM 3.2 mmol/L (3.5-5.1); SODIUM SERUM 142 mmol/L (136-145); UREA NITROGEN, BLOOD 6 mg/dL (7-18)
--- NOTE | 2019-06-04 10:45 | NUR ---
DISCHARGE PLANNING: RECEIVED AN ORDER FOR HOSPICE EVALUATION. MET WITH THE PATIENT'S DAUGHTER CHRIS CARROLL AT THE BEDSIDE TO DISCUSS DC PLAN. PROVIDED HER WITH CHOICE LETTER AND BROCHURES FROM [facility], [facility], [facility], [facility] AND [facility]. SHE STATED JOSSELINE FROM [facility] CONTACTED HER ALREADY AND WILL COME OVER TO MEET WITH HER. SHE ALSO STATED SHE HAVE NOT DECIDED YET WHICH HOSPICE AGENCY. SHE SAID SHE WILL DISCUSS IT WITH HER SIBLINGS FIRST AND I WILL HAVE AN ANSWER TOMORROW. Addendum: 06/05/19 at 1157 by Kiley Goetz CM DC PLANNING: SEEN BY NEUROLOGIST DR HASSAN ,ORDERED EEG, VPA 1G IV X1 FOLLOWED 500 MG Q12HRS. DC PLAN SN[facility] RECOMMENDED BY NEUROLOGIST. WAITING FOR THE FAMILY AND PATIENT TO DECIDE. CM TO FOLLOW. Addendum: 06/06/19 at 1228 by Kiley Goetz CM DC PLANNING I RECEIVED A CALL FROM PT'S DAUGHTER GIL THE #1 CHOICE WILL BE [facility] 2ND [facility]ICE [facility] AND 3RD CHOICE [facility]. FAXED TO [facility] SPOKE WITH RAISA AND WAITING FOR HER TO CALL BACK IM LETTER AND CHOICE OF [facility] LETTER GIVEN SIGNED BY PT'S DAUGHTER GIL. CALLED [facility] SPOKE WITH LEATHA AND RECEIVED THE AUTHORIZATION FOR TRANSPORT [phone]. Addendum: 06/06/19 at 1440 by Kiley Goetz DC PLANNING [facility] ACCEPTED PATIENT CAN GO TO ROOM 204B # TO GIVE REPORT [phone],ARRANGED TRANSPORT WITH [facility] [phone] PL[employer] OPERATIONS VICE PRESIDENT TIME BETWEEN 3:30-4PM
[2019-06-04 12:00] VITALS: BP 118/52
--- NOTE | 2019-06-04 12:15 | NUR ---
Pt's daughter at bedside assisting with feeding the pt. Pt is tolerating puree diet. Was able to consume 50% of food. Pt is cooperative during meal time. Bed at cordova's position and call light within reach.
[2019-06-04] MEDS ORDERED: VALPROATE SODIUM 1,000 MG in NACL 0.9% 100 ML IV SCH (15:00)
[2019-06-04 16:00] VITALS: BP 119/52
[2019-06-04] MEDS ORDERED: POTASSIUM CHLORIDE 40 MEQ, LIDOCAINE MPF 1% 25 MG in NACL 0.9% 250 ML IV ONE (16:00)
--- NOTE | 2019-06-04 16:50 | NUR ---
Pt is calm and resting supine in bed. Retrieved blood glucose reading at 123. No need for humalog coverage.
--- NOTE | 2019-06-04 17:45 | NUR ---
Pt's daughter is at bed side feeding the pt. Pt is tolerating pureed dinner well, consumed 100%. Active listening provided. Neurologist, insurance case manager, and hospice nurse talked to the pt's daughter about the EEG and options for hospice.
--- NOTE | 2019-06-04 19:18 | NUR ---
Endorsed report to PM nurse, Elen. Pt is resting, bed at lowest position, call light within reach, bed alarm is activated.
--- NOTE | 2019-06-04 19:29 | NUR ---
RECEIVED REPORT FROM OBDULIA PYLE DAYSHIFT AT BEDSIDE FOR CONTINUITY OF CARE, PT IN STABLE CONDITION.
[2019-06-04 20:00] VITALS: BP 143/62
--- NOTE | 2019-06-04 20:00 | NUR ---
PT IN BED, AOX1, RESTING WITH EYES CLOSED BUT AROUSABLE TO TOUCH; NO S/S OF PAIN OR DISTRESS NOTED. IV SITE L/FA 20G INTACT AND ASYMPTOMATIC IT CONTINUES TO RUN POTASSIUM AT 68MLS/HR. PT WAS TURNED, CHANGED AND REPOSITIONED IN BED V/S FOLLOWS: T 98.1 P 75 R 18 B/P 143/62 02 96% ON ROOM AIR. ALL FALLS PRECAUTIONS IN PLACE.
--- NOTE | 2019-06-04 21:00 | NUR ---
PT IN BED NO S/S OF PAIN OR DISTRESS NOTED. FINGERSTICK IS 133, NO HUMALOG COVERAGE REQUIRED AT THIS TIME. VALPROATE SODIUM RECONSTITUTED IN NS AND RUNNING AT 105MLS/HR ORDERED. ALL FALLS PRECAUTIONS IN PLACE .
[2019-06-04] MEDS ORDERED: VALPROATE SODIUM 500 MG/5 ML VIAL IV ONE (21:29)
[2019-06-04] MEDS: VALPROATE SODIUM 500 MG in NACL 0.9% 100 ML IV SCH (21:41)
--- NOTE | 2019-06-04 23:30 | NUR ---
PT IN BED, AOX1, WITH NO S/S OF PAIN OR DISTRESS NOTED. HE WAS TURNED AND REPOSITIONED IN BED. IV SITE ON LEFT F/A INTACT AND RUNNING N/S AT 80MLS/HR ORDERED. V/S FOLLOWS: T 98.5 P 62 R 20 B/P 118/47 02 97% ON ROOM AIR. ALL FALLS PRECAUTIONS IN PLACE .
[2019-06-05] VITALS: BP 118/47
[2019-06-05] MEDS: NACL 0.9% 1,000 ML IV SCH ×2 (01:47→14:17)
--- NOTE | 2019-06-05 01:49 | NUR ---
RECEIVED REPORT FROM MERVAT. PATIENT IN STABLE CONDITION. WILL CONTINUE TO MONITOR.
--- NOTE | 2019-06-05 01:50 | NUR ---
REPORT GIVEN TO ANNITA RN AND WILBERTO RN NURSE AT BEDSIDE DUE TO CHANGE OF ASSIGNMENT. PT IN STABLE CONDITION.
--- NOTE | 2019-06-05 02:08 | NUR ---
MADE ROUNDS. PATIENT ASLEEP AND IN STABLE CONDITION. CALL LIGHT WITHIN REACH. WILL CONTINUE TO MONITOR.
--- NOTE | 2019-06-05 03:59 | NUR ---
VITALS TAKEN. PATIENT IN STABLE CONDITION. NO S/SX ACUTE DISTRESS. CALL LIGHT WITHIN REACH. WILL CONTINUE TO MONITOR.
[2019-06-05 04:00] VITALS: BP 136/62
[2019-06-05] MEDS: BLOOD GLUCOSE MONITORING 1 DEV DEV FS SCH ×2 (06:39→11:49)
[2019-06-05 06:40] LABS: BASOPHILS % (AUTO) 0.3 % (0.0-2.0); EOSINOPHILS # (AUTO) 0.2 K/uL (0-0.4); EOSINOPHILS % (AUTO) 4.2 % (0.0-4.0); HEMATOCRIT 27.3 % (36-52); HEMOGLOBIN 9.3 g/dL (12.0-18.0); LYMPHOCYTES # (AUTO) 1.5 K/uL (2.0-11.5); LYMPHOCYTES % (AUTO) 25.4 % (20.5-51.1); MEAN CORPUSCULAR HEMOGLOBIN 32 pg (27-31); MEAN CORPUSCULAR HGB CONC 34 g/dL (33-37); MEAN CORPUSCULAR VOLUME 94.3 fL (80-94); MONOCYTES # (AUTO) 0.4 K/uL (0.8-1.0); MONOCYTES % (AUTO) 7.3 % (1.7-9.3); NEUTROPHILS # (AUTO) 3.6 K/uL (1.8-7.7); NEUTROPHILS % (AUTO) 62.8 % (42.2-75.2); PLATELET COUNT (AUTO) 115 K/uL (140-450); RED BLOOD CELL COUNT(AUTO) 2.89 MIL/uL (4.20-6.10); RED CELL DISTRIBUTION WIDTH 13.1 % (11.6-13.7); WHITE BLOOD COUNT (AUTO) 5.7 K/uL (4.8-10.8)
--- NOTE | 2019-06-05 07:17 | NUR ---
ENDORSED PATIENT TO AM SHIFT IN STABLE CONDITION.
[2019-06-05 07:28] LABS: ANION GAP 10.5 (8-16); CARBON DIOXIDE 28.2 mmol/L (21-32); CHLORIDE 110 mmol/L (98-107); CREATININE 0.6 mg/dL (0.7-1.3); GLUCOSE 94 mg/dL (74-106); POTASSIUM 3.7 mmol/L (3.5-5.1); SODIUM SERUM 145 mmol/L (136-145); UREA NITROGEN, BLOOD 9 mg/dL (7-18)
[2019-06-05 07:35] LABS: MAGNESIUM 1.8 mg/dL (1.8-2.4); PHOSPHORUS 3.6 mg/dL (2.5-4.9)
[2019-06-05 08:00] VITALS: BP 133/59
--- NOTE | 2019-06-05 08:00 | NUR ---
RECEIVED REPORT FROM TAILMAN, PT IS AWAKE WITH DAUGHTER AT THE BEDSIDE. PT HAS NO SIGN OF DISTRESS. PT HAS IV NS INFUSING AT 80MLS/HR.
--- NOTE | 2019-06-05 09:00 | NUR ---
ADMINISTERED MEDICATION. ORAL MED, CRUSHED AND MIXED W/ APPLESAUCE. PT TOLERATED WELL. WILL CONTINUE MONITORING.
[2019-06-05 09:06] LABS: FOLIC ACID 15.5 ng/mL (>3.0)
--- NOTE | 2019-06-05 09:14 | NUR ---
PATIENT HAS BEEN SCREENED AND CATEGORIZED HIGH NUTRITION RISK. PATIENT WILL BE SEEN WITHIN 1-2 DAYS OF ADMISSION. 06/05/[address]
[2019-06-05] MEDS: VALPROATE SODIUM 500 MG in NACL 0.9% 100 ML IV SCH ×2 (10:15→20:57)
[2019-06-05] MEDS: QUEtiapine FUMARATE 100 MG TAB PO SCH ×3 (10:17→17:52)
--- NOTE | 2019-06-05 11:30 | NUR ---
BLOOD GLUCOSE CHECKED, 140MG/DL. HUMALOG NOT GIVEN
[2019-06-05 12:00] VITALS: BP 137/51
--- NOTE | 2019-06-05 13:00 | NUR ---
DUE MEDS GIVEN AND WELL TOLERATED. WILL CONTINUE TO MONITOR
--- NOTE | 2019-06-05 13:14 | NUR ---
SCREEN FOR LOW KIMBER SCALE AT RISK, CONTINUE TO FOLLOW PRESSURE ULCER PREVENTION INTERVENTIONS. -TURN AND REPOSITION PATIENT Q 2H -ASSESS AND MONITOR SKIN CONDITION DURING POSITION CHANGE -OFFLOAD BILATERAL HEELS BY PLACING PILLOWS UNDER CALVES AT ALL TIMES, UNLESS OTHERWISE CONTRAINDICATED -PRESSURE REDISTRIBUTION BY PLACING PILLOWS AND OFFLOADING SACRALCOCCYX -KEEP SKIN CLEAN AND DRY AT ALL TIMES.
--- NOTE | 2019-06-05 15:52 | NUR ---
06/05/19 RD INITIAL ASSESSMENT COMPLETED PLEASE REFER TO NUTRITION ASSESSMENT UNDER CARE ACTIVITY FOR ESTIMATED NUTRITIONAL NEEDS. 1. CONTINUE PUREE CCHO 60 GM DIET WITH NECTAR THICK LIQUIDS TOLERATED 2. CONTINUE TO PROVIDE FEEDING ASSISTANCE WITH MEALS 3. RD TO FOLLOW-UP 3-5 DAYS, MODERATE RISK RIANA MORRISSEY RD
[2019-06-05 16:00] VITALS: BP 123/55
--- NOTE | 2019-06-05 17:00 | NUR ---
SEROQUEL PO CRUSHED AND MIXED WITH APPLESAUCE. WELL TOLERATED. WILL CONTINUE MONITORING
--- NOTE | 2019-06-05 19:00 | NUR ---
PT IS SLEEPING. NO SIGNS OF DISTRESS. REPORT GIVEN TO STATE ARCHIVIST NURSE FOR CONTINUITY OF CARE.
--- NOTE | 2019-06-05 19:05 | NUR ---
ENDORSED PT TO TELEMARKETING REPRESENTATIVE NURSE, WAYNE, FOR CONTINUITY FOR CARE.
--- NOTE | 2019-06-05 19:43 | NUR ---
* ST NOTE * Pt seen at bedside w/daughter present. Pt appearing to consent to daughter present for evaluation. Pt alert and cooperative, appearing to not be in pain at this time d/t lack of facial grimacing, groaning, etc. Bedside dysphagia and oral mechanism exams completed. See evaluation report for further details. Pt tolerating 3/3 alternating PO trials of puree apple sauce 1-3 CCs at a time via a spoon, as well as 8/8 alternating PO trials of thin liquid apple juice via a straw, all w/o s/s of aspiration or choking. Pt and daughter education completed re: aspiration precautions and safe swallow compensatory strategies pt and caregivers could utilize to aid pt w/swallow function, w/pt indifferent but caregiver/daughter verbalizing understanding and agreement w/clinician's recommendations. Although pt's PLOF was a puree texture and nectar-thickened liquid consistency, pt presenting with consistent tolerance of thin liquids via least restrictive method - a straw. Thus it is recommended pt's PO diet consistency be modified to puree textures w/thin liquids for all meals w/STRICT aspiration precautions in place. If pt cannot tolerate thin liquids, then his consistency may be downgraded back to NTL at that time. ST to ff 2x/week for 1 week to further address swallow function. Pt, caregiver/daughter and caregiver/Nsg Nataliia education completed re: results of evaluation; benefits of receiving skilled NURSE INSTRUCTOR services; POC; and prognosis for improvement; with pt indifferent but caregiver/daughter and caregiver/nsg Nataliia verbalizing understanding and agreement w/clinician's recommendations. Recommend: - PO DIET CONSISTENCY OF PUREE TEXTURES W/THIN LIQUIDS for all meals - PO MEDICATION ADMINISTRATION CRUSHED IN PUREE TEXTURES - MAINTAIN STRICT ASPIRATION PRECAUTIONS DURING PT'S PO INTAKE - PO INTAKE OF THIN LIQUIDS VIA CUP OR SPOON PREFERABLY - Pt may drink thin liquids from a straw but with close supervision - Pt requires total assistance w/feeding, and family may assist - FEEDER TO SIT PT UP AT 80-90 DEGREE ANGLE DURING PO INTAKE; FEED PT SLOWLY; ALTERNATE BTWN SOLIDS & LIQUIDS; AND PROVIDE SMALL BITES/SIPS - Pt's liquid consistency may be downgraded to nectar-thickened liquids of pt not tolerating thin liquids ST to ff 2x/week for 1 week to further address swallow function. NOMS Level 3 Time In/Out 10:45 - 11:15
--- NOTE | 2019-06-05 21:00 | NUR ---
ADMINISTERED SCHEDULED IVPB ORDERED. REPOSITIONED PT AND PERFORMED PERINEAL CARE. PT LYING DOWN COMFORTABLY WITH NO SIGNS OF DISTRESS.
[2019-06-06] VITALS: BP 125/53
--- NOTE | 2019-06-06 | NUR ---
VS CHECKED AND CHARTED. PT LYING DOWN ASLEEP,COMFORTABLY, WITH NO SIGNS OF DISTRESS. ASSISTED HUMAN GEOGRAPHY INSTRUCTOR WITH REPOSITIONING PT. PT TOLERATED ACTIVITY WELL. WILL CONTINUE TO MONITOR PT.
[2019-06-06] MEDS: NACL 0.9% 1,000 ML IV SCH (00:04)
--- NOTE | 2019-06-06 02:00 | NUR ---
PT ASLEEP WITH NO SIGNS OF DISTRESS.
--- NOTE | 2019-06-06 04:00 | NUR ---
PT ASLEEP WITH NO SIGNS OF DISTRESS. REPOSITIONED PT, PT TOLERATED IT WELL. WILL CONTINUE TO MONITOR PT.
--- NOTE | 2019-06-06 05:00 | NUR ---
PT REFUSED LAB DRAW PER LAB PERSONNEL. PT BECOMING AGITATED WHEN TRYING TO START WITH LAB DRAW.
--- NOTE | 2019-06-06 05:30 | NUR ---
REPOSITIONED PT AND LINENS WERE CHANGED, REPORTED THAT PT WAS BEING COMBATIVE AND APPEARS TO REFUSE TO BE CHANGED. PT WAS REASSURED AND EXPLAINED TO THAT HE NEEDED TO BE REPOSITIONED AND CHANGED.
--- NOTE | 2019-06-06 06:12 | NUR ---
PT AWAKE, LYING DOWN COMFORTABLY, WITH NO SIGNS OF DISTRESS. SAFETY MEASURES, SZ AND ASPIRATION PRECAUTIONS STILL IN PLACE. WILL ENDORSE TO AM SHIFT RN FOR PT'S CONTINUITY OF CARE.
--- NOTE | 2019-06-06 07:20 | NUR ---
RECEIVED BEDSIDE REPORT FROM NIGHTSHIFT NURSE. PT ASLEEP IN BED UPON ARRIVAL. RESPONSIVE TO VERBAL AND TACTILE STIMULI. ABLE TO MAKE NEEDS KNOWN. RESPIRATIONS EVEN AND UNLABORED WITH NO SOB OR RESPIRATORY DISTRESS. IV SITE IN LEFT FA 22G CLEAN, DRY, AND INTACT. SAFETY MEASURES IN PLACE. WILL CONTINUE TO MONITOR.
[2019-06-06 08:00] VITALS: BP 137/50
[2019-06-06] MEDS: QUEtiapine FUMARATE 100 MG TAB PO SCH ×2 (09:19→13:41)
[2019-06-06] MEDS: VALPROATE SODIUM 500 MG in NACL 0.9% 100 ML IV SCH (09:19)
--- NOTE | 2019-06-06 09:19 | NUR ---
ADMINISTERED SCHEDULED MED PRESCRIBED PER MD ORDER. PT TOLERATED WELL. MEDICATION EDUCATION PERFORMED. PT VERBALIZED UNDERSTANDING. SAFETY MEASURES IN PLACE. WILL CONTINUE TO MONITOR.
[2019-06-06 09:27] LABS: BASOPHILS % (AUTO) 0.4 % (0.0-2.0); EOSINOPHILS # (AUTO) 0.3 K/uL (0-0.4); EOSINOPHILS % (AUTO) 3.9 % (0.0-4.0); HEMATOCRIT 33.2 % (36-52); HEMOGLOBIN 11.3 g/dL (12.0-18.0); LYMPHOCYTES # (AUTO) 1.9 K/uL (2.0-11.5); LYMPHOCYTES % (AUTO) 25.7 % (20.5-51.1); MEAN CORPUSCULAR HEMOGLOBIN 32 pg (27-31); MEAN CORPUSCULAR HGB CONC 34 g/dL (33-37); MEAN CORPUSCULAR VOLUME 94.4 fL (80-94); MONOCYTES # (AUTO) 0.3 K/uL (0.8-1.0); MONOCYTES % (AUTO) 4.5 % (1.7-9.3); NEUTROPHILS # (AUTO) 4.9 K/uL (1.8-7.7); NEUTROPHILS % (AUTO) 65.5 % (42.2-75.2); PLATELET COUNT (AUTO) 136 K/uL (140-450); RED BLOOD CELL COUNT(AUTO) 3.52 MIL/uL (4.20-6.10); RED CELL DISTRIBUTION WIDTH 13.3 % (11.6-13.7); WHITE BLOOD COUNT (AUTO) 7.5 K/uL (4.8-10.8)
[2019-06-06 09:40] LABS: ANION GAP 14.5 (8-16); CARBON DIOXIDE 27.9 mmol/L (21-32); CHLORIDE 109 mmol/L (98-107); CREATININE 0.6 mg/dL (0.7-1.3); GLUCOSE 125 mg/dL (74-106); POTASSIUM 3.4 mmol/L (3.5-5.1); SODIUM SERUM 148 mmol/L (136-145); UREA NITROGEN, BLOOD 6 mg/dL (7-18)
[2019-06-06 09:43] LABS: MAGNESIUM 1.9 mg/dL (1.8-2.4); PHOSPHORUS 3.2 mg/dL (2.5-4.9)
--- NOTE | 2019-06-06 11:58 | NUR ---
PT AND FAMILY IS AWARE OF DISCHARGE TODAY. FAMILY IS WORKING WITH SW TO DETERMINE SNF PLACEMENT FOR PT. SAFETY MEASURES IN PLACE. WILL CONTINUE TO MONITOR
--- NOTE | 2019-06-06 12:45 | NUR ---
PT RESTING IN BED WITH FAMILY AT BEDSIDE. RESPIRATIONS EVEN AND UNLABORED WITH NO SOB OR RESPIRATORY DISTRESS. SKIN WARM AND DRY TO TOUCH. ABLE TO MAKE NEEDS KNOWN. SAFETY MEASURES IN PLACE. WILL CONTINUE TO MONITOR
[2019-06-06] MEDS ORDERED: POTASSIUM CHLORIDE 10 MEQ TABER PO SCH (13:39)
--- NOTE | 2019-06-06 13:46 | NUR ---
ADMINISTERED SCHEDULE MED PRESCRIBED PER MD ORDER. PT TOLERATED WELL. MEDICATION EDUCATION PROVIDED. PT VERBALIZED UNDERSTANDING. SAFETY MEASURES IN PLACE.
[2019-06-06] MEDS ORDERED: DOCU-299 PO (13:51)
[2019-06-06] MEDS ORDERED: DIVA500T1 PO (13:51)
--- NOTE | 2019-06-06 15:00 | NUR ---
CALLED [facility] AND GAVE REPORT TO NURSE GABBY. REPEATED INFORMATION BACK TO ME. PT IS GOING INTO ROOM 204B. NO COMPLICATIONS OR CONCERNS AT THIS TIME. PICKUP IS ESTIMATED TO ARRIVE BETWEEN 1530 AND 1600. SAFETY MEASURES IN PLACE.
[2019-06-06 15:32] VITALS: BP 137/50
--- NOTE | 2019-06-06 15:56 | NUR ---
ADMINISTERED PNA AND FLU VACCINE PER MD ORDER. PT TOLERATED WELL. NO COMPLICATIONS AT THIS TIME. SAFETY MEASURES IN PLACE.
--- NOTE | 2019-06-06 16:15 | NUR ---
PT LYING IN BED UPON ARRIVAL WITH FAMILY AT BEDSIDE. ABLE TO MAKE NEEDS KNOWN. SKIN WARM AND DRY TO TOUCH. RESPIRATIONS EVEN AND UNLABORED WITH NO SOB OR RESPIRATORY DISTRESS. WENT OVER DISCHARGE INSTRUCTIONS WITH PT. PT SIGNED APPROPRIATE FORMS. NO COMPLICATIONS OR CONCERNS AT THIS TIME. INFORMED PATIENT TO VISIT ED FOR ANY SIGNS OF DISTRESS. INTACT IV CANNULA AND ID BANDS REMOVED. PT GATHERED ALL OF HIS BELONGING. PNA AND FLU VACCINE WAS ADMINISTERED. PT WAS CHANGED INTO OWN CLOTHES AND WAS WHEELED OUT SAFELY TO [facility] WITH MEDICS AT HIS SIDE. PT IS STABLE.
== END 2019-06-06 16:10 | disposition home or self-care (01) | DRG 100 ==
LOC: MED 09:17 → MTU 12:17
PROVIDERS: ADMIT General Practice; ATTEND General Practice
PROC: 3E0234Z Introduction of Serum, Toxoid and Vaccine into Muscle, Percutaneous Approach (ICD-10-PCS; principal; 2019-06-03)
DX: G40.209 Localization-related (focal) (partial) symptomatic epilepsy and epileptic syndromes with complex partial seizures, not intractable, without status epilepticus (principal); E43 Unspecified severe protein-calorie malnutrition; G90.9 Disorder of the autonomic nervous system, unspecified; F29 Unspecified psychosis not due to a substance or known physiological condition; Z23 Encounter for immunization; Z88.1 Allergy status to other antibiotic agents; E11.9 Type 2 diabetes mellitus without complications; I10 Essential (primary) hypertension; G30.9 Alzheimer's disease, unspecified; E87.6 Hypokalemia; F02.80 Dementia in other diseases classified elsewhere, unspecified severity, without behavioral disturbance, psychotic disturbance, mood disturbance, and anxiety; R31.9 Hematuria, unspecified; Z68.22 Body mass index [BMI] 22.0-22.9, adult
CPT/HCPCS: 36415; 51702; 70450; 71045; 76770; 80048; 80053; 80305; 81001; 82009; 82140; 82150; 82306; 82550; 82607; 82746; 82948; 83036; 83605; 83690; 83735; 83880; 84100; 84439; 84443; 84484; 85025; 85610; 87081; 87804; 90732; 92610; 93005; 93880; 95816; 96374; 96375; 97110; 97112; 97530; 99285; G0482; J1200; J1815; J2001; J2060; J3480; J3490; J7030; Q0092